=== PATIENT | male | born 1995 | race Hispanic/Latino ===

== ENCOUNTER 2017-08-09 19:37 | Emergency (ER) | payer SELFPAY ==
[~2017-08-09] VITALS: Ht 167.6 cm; Wt 70.0 kg
[2017-08-09 20:22] LABS: HEMATOCRIT 42.7 % (39.0-50.0); HEMOGLOBIN 14.9 g/dl (14.0-18.0); IMMATURE GRANULOCYTES 0.5 % (0.0-1.0); MEAN CELL VOLUME 87.5 fL CALC (80.0-100.0); MEAN CORPUSCULAR HGB 30.5 pG CALC (26.0-32.0); MEAN CORPUSCULAR HGB CONC 34.9 g/L CALC (32.0-36.0); NEUT# 7.46 thou/uL (1.82-7.42); RED BLOOD COUNT 4.88 mill/uL (4.70-6.10); RED CELL DISTRI WIDTH 12.3 % (11.5-15.5)
[2017-08-09 20:23] LABS: URINE BILIRUBIN - DIPSTICK NEGATIVE (NEGATIVE); URINE BLOOD DIPSTICK TRACE-INTACT (NEGATIVE); URINE CLARITY CLEAR; URINE COLOR YELLOW; URINE GLUCOSE - DIPSTICK 500 mg/dL (NEGATIVE); URINE KETONE NEGATIVE (NEGATIVE); URINE LEUK ESTERASE NEGATIVE (NEGATIVE); URINE NITRITE - DIPSTICK NEGATIVE (Negative); URINE PH 5.5 (4.5-8.0); URINE PROTEIN - DIPSTICK NEGATIVE (NEG-TRACE); URINE UROBILINOGEN - DIPSTICK 0.2 E.U./dL (0.2)
[2017-08-09 20:24] LABS: BARBITURATES NEGATIVE (NEGATIVE); COCAINE NEGATIVE (NEGATIVE); METHADONE NEGATIVE (NEGATIVE); OXCYCODONE NEGATIVE (NEGATIVE); TETRAHYDROCANNABIONOL NEGATIVE (NEGATIVE); TRICYLIC ANTIDEPRESSANTS NEGATIVE (NEGATIVE)
[2017-08-09 20:39] LABS: ALBUMIN 4.4 g/dL (3.2-5.0); ALKALINE PHOSPHATASE 115 u/l (38-126); ANION GAP 24 (6-22 (CALC)); BILIRUBIN, TOTAL 0.7 mg/dL (0.0-1.4); BUN 12 mg/dL (9-20); BUN/CREATININE RATIO 11 (12-20 (CALC)); CALCIUM 8.5 mg/dL (8.4-10.2); CARBON DIOXIDE 20 mmol/l (22-30); CHLORIDE 101 mmol/l (95-108); CREATININE 1.1 mg/dL (0.7-1.3); GFR > 60 ML/MIN (>=60 (CALC)); GFR FOR AFR.AMER. > 60 ML/MIN (>=60 (CALC)); GLUCOSE 251 mg/dL (75-110); MAGNESIUM 2.4 mg/dL (1.6-2.3); POTASSIUM 4.4 mmol/l (3.5-5.1); SGOT/AST 38 u/l (17-59); SGPT/ALT 26 u/l (21-72); SODIUM 140 mmol/l (137-146); TOTAL PROTEIN 6.9 g/dL (6.3-8.2)
[2017-08-09 20:46] LABS: ETHYL ALCOHOL 0 mg/dl (0-30)
[2017-08-10 00:07] VITALS: BP 81/42
== END 2017-08-10 00:22 | disposition short-term general hospital (02) | DRG 189 ==
LOC: ED 19:37 → EDBD 19:53 → ED 08-10 00:22
PROVIDERS: Emergency Medicine
PROC: 0BH18EZ Insertion of Endotracheal Airway into Trachea, Via Natural or Artificial Opening Endoscopic (ICD-10-PCS; principal; 2017-08-09)
DX: J96.90 Respiratory failure, unspecified, unspecified whether with hypoxia or hypercapnia (principal); J45.902 Unspecified asthma with status asthmaticus; R00.0 Tachycardia, unspecified; R41.82 Altered mental status, unspecified; Y92.007 Garden or yard of unspecified non-institutional (private) residence as the place of occurrence of the external cause

== ENCOUNTER 2017-11-04 16:32 | Inpatient (IN) | payer SELFPAY ==
[2017-11-04] VITALS (7 sets, daily range): BP systolic 112–140; BP diastolic 59–83
[~2017-11-04] VITALS: Ht 167.6 cm; Wt 69.2 kg
--- NOTE | 2017-11-04 16:50 | NUR ---
PT ON STRETCHER, EVEN DURING NEB TREATMENTS, SATS REMAIN AT 84, NOTIFIED, BIPAP INITIATED. PT IS HAVING LABORED BREATHING.
--- NOTE | 2017-11-04 17:05 | NUR ---
SATS UP TO 100%N WITH BIPAP APPLIED.
--- NOTE | 2017-11-04 17:06 | NUR ---
MEDICATIONS ADMINISTERED PER MD ORDER. , PT IS BEGINGING TO CALM DOWN WITH ASSISTANCE FROM BIPAP, PT STATES FEELING "ALITTLE" BETTER.
[2017-11-04 17:16] LABS: HEMATOCRIT 46.2 % (39.0-50.0); HEMOGLOBIN 16.1 g/dl (14.0-18.0); IMMATURE GRANULOCYTES 0.2 % (0.0-1.0); MEAN CELL VOLUME 87.5 fL CALC (80.0-100.0); MEAN CORPUSCULAR HGB 30.5 pG CALC (26.0-32.0); MEAN CORPUSCULAR HGB CONC 34.8 g/L CALC (32.0-36.0); NEUT# 1.7 thou/uL (1.82-7.42); RED BLOOD COUNT 5.28 mill/uL (4.70-6.10); RED CELL DISTRI WIDTH 12.8 % (11.5-15.5)
[2017-11-04 17:23] LABS: ALBUMIN 4.6 g/dL (3.2-5.0); ALKALINE PHOSPHATASE 105 u/l (38-126); ANION GAP 20 (6-22 (CALC)); BILIRUBIN, TOTAL 0.3 mg/dL (0.0-1.4); BUN 15 mg/dL (9-20); BUN/CREATININE RATIO 18 (12-20 (CALC)); CARBON DIOXIDE 24 mmol/l (22-30); CHLORIDE 107 mmol/l (95-108); CREATININE 0.8 mg/dL (0.7-1.3); GFR > 60 ML/MIN (>=60 (CALC)); GFR FOR AFR.AMER. > 60 ML/MIN (>=60 (CALC)); POTASSIUM 3.6 mmol/l (3.5-5.1); SGOT/AST 28 u/l (17-59); SGPT/ALT 23 u/l (21-72); SODIUM 146 mmol/l (137-146); TOTAL PROTEIN 7.3 g/dL (6.3-8.2)
--- NOTE | 2017-11-04 17:34 | NUR ---
ABG PREFORMED AND AWARE OF RESULTS, PT CONTINUING TO SLOW DOWN RESPIRATORY RATE, IV PATENT,
[2017-11-04 17:35] LABS: INFLUENZA A NONE DETECTED (NONE DETECT); INFLUENZA B NONE DETECTED (NONE DETECT)
--- NOTE | 2017-11-04 18:02 | NUR ---
BIPAP- PRESSURE 15/5 DOWN FROM 01/05 35% FROM 40% INITALLY STARTED @100% RESP RATE 22 FROM 24 CURRENT SETTINGS FROM DIANA RT
--- NOTE | 2017-11-04 18:13 | NUR ---
PT CALLED STAFF TO ROOM, HE HAS A RASH ON LEGS AND TRUNK OF BODY WITH ITCHING. NOTIFIED AND WILL GIVE ORDERS.
--- NOTE | 2017-11-04 18:33 | NUR ---
REPORT CALLED TO ICU, REPORT GIVEN TO RAUL SHAH- ACCEPTED MANET.
--- NOTE | 2017-11-04 18:45 | NUR ---
RECEIVED FROM ER VIA STRETCHER ACCOMPANIED BY ER STAFF, AMBULATING TO STANDING SCALE THEN TO BED WITH STEADY GAIT. A/O X3. ON BIPAP /, 35%, RATE 22. REPIRATIONS 24, ADMITS TO FEELING MUCH BETTER THEN WHEN ARRIVED. TEMP 97.3, HR 102, B/P 140/83, O2 SAT 99%. LUNG SOUNDS CLEAR BILAT. RAISED AREAS NOTICED TO RIGHT SIDE OF ABDOMEN AND RIGHT LOWER EXTREMITY, DENIES HAVING PRIOR TO ARRIVAL. SALINE LOCKS #20 TO LAC AND RAC, FLUSHED WITH NO COMPLICATIONS. ORIENTED TO BED CONTROLS AND CALL LIGHT. WILL CONTINUE TO MONITOR.
--- NOTE | 2017-11-04 18:54 | NUR ---
PT TRANSPORTED TO ICU ON MONITOR WITH RN. RT TRANSPORTED BIPAP MACHINE. PT TRANSFERERED WITHOUT INCIDENT.
[2017-11-04 20:33] LABS: URINE BILIRUBIN - DIPSTICK NEGATIVE (NEGATIVE); URINE BLOOD DIPSTICK TRACE-INTACT (NEGATIVE); URINE COLOR YELLOW; URINE GLUCOSE - DIPSTICK NEGATIVE (NEGATIVE); URINE KETONE NEGATIVE (NEGATIVE); URINE LEUK ESTERASE NEGATIVE (NEGATIVE); URINE NITRITE - DIPSTICK NEGATIVE (Negative); URINE PROTEIN - DIPSTICK NEGATIVE (NEG-TRACE); URINE SPECIFIC GRAVITY 1.025; URINE UROBILINOGEN - DIPSTICK 0.2 E.U./dL (0.2)
--- NOTE | 2017-11-04 20:37 | NUR ---
BIPAP REMOVED BY RESPIRATORY THERAPY, O2 @2L VIA NC APPLIED AT 2036. O2 SAT MAINTAINING AT 97-98%. PT ON CELL PHONE, TALKING WITH NO SOB. IV FLUIDS NS SPIKE AND INFUSING TO RAC AT 100CC/HR. CALL LIGHT IN REACH. ABG REPEATED BY JUNIOR THORNTON AT THIS TIME 2129, TOLERATED WELL.
[2017-11-04 20:38] LABS: URINE CLARITY CLEAR
--- NOTE | 2017-11-04 23:15 | NUR ---
OOB TO BATHROOM WITH STEADY GAIT, RESPIRATIONS EVEN AND UNLABORED ON O2 @2L VIA NC. ADMITS TO HAVING SOFT, FORMED, BROWN BM. THEN BACK TO BED, DENIES SOB. TOLERATING PO FLUIDS.
[2017-11-05] VITALS (11 sets, daily range): BP systolic 103–137; BP diastolic 50–69
--- NOTE | 2017-11-05 02:30 | NUR ---
OOB TO BATHROOM WITH STEADY GAIT O2 @2L VIA NC, O2 SAT 98%, RESPIRATIONS EVEN AND UNLABORED, VOIDING CLEAR YELLOW URINE AND MODERATE, BROWN, FORMED BM. BACK TO BED. CALL LIGHT IN REACH. IV FLUIDS INFUSING TO RAC AT 100CC/HR.
--- NOTE | 2017-11-05 04:47 | NUR ---
MORNING BLOOD WORK DRAWN BY DIRECTOR SUMMER SESSIONS, TOLERATED WELL. RESPIRATIONS EVEN AND UNLABORED ON O2@2L VIA NC. IV FLUIDS INFUSING TO RAC WITH NO COMPLICATIONS. CALL LIGHT IN REACH.
[2017-11-05 05:29] LABS: HEMATOCRIT 41.7 % (39.0-50.0); HEMOGLOBIN 14.7 g/dl (14.0-18.0); IMMATURE GRANULOCYTES 0.4 % (0.0-1.0); MEAN CELL VOLUME 86.3 fL CALC (80.0-100.0); MEAN CORPUSCULAR HGB 30.4 pG CALC (26.0-32.0); MEAN CORPUSCULAR HGB CONC 35.3 g/L CALC (32.0-36.0); NEUT# 7.28 thou/uL (1.82-7.42); RED BLOOD COUNT 4.83 mill/uL (4.70-6.10); RED CELL DISTRI WIDTH 12.6 % (11.5-15.5)
[2017-11-05 05:43] LABS: ANION GAP 19 (6-22 (CALC)); BUN 17 mg/dL (9-20); BUN/CREATININE RATIO 16 (12-20 (CALC)); CARBON DIOXIDE 21 mmol/l (22-30); CHLORIDE 107 mmol/l (95-108); GFR > 60 ML/MIN (>=60 (CALC)); GFR FOR AFR.AMER. > 60 ML/MIN (>=60 (CALC)); POTASSIUM 4.8 mmol/l (3.5-5.1); SODIUM 142 mmol/l (137-146)
--- NOTE | 2017-11-05 06:29 | NUR ---
RASH TO RIGHT SIDE OF ABDOMEN AND RIGHT LOWER EXTREMITY HAS RESOLVED.
--- NOTE | 2017-11-05 07:30 | NUR ---
PT RESTING IN BED, ALERT AND ORIENTED, SPEAKS [place] ONLY BUT ABLE TO MAKE NEEDS KNOWN, AM ASSESSMENT COMPLETED VERY FAINT WHEEZES HEARD BUT NO SHORTNESS OF BREATH OR DISTRESS NOTED, O2 STOPPED (PT DOES NOT WEAR O2 AT HOME) AND WILL MONITOR PULS OX CLOSELY, ABD SOFT, BS ACTIVE BM X2 LAST PM PER REPORT, DENIES PAIN OR DISCOMFORT, AM ASSESSMENT COMPLETED SEE INTERVENTION. TELE READING SR ST RATE 90-110, BP STABLE PT AFEBRILE, CALL FORRESTER WITHIN REACH, WILL CONTINUE TO MONITOR.
--- NOTE | 2017-11-05 07:45 | NUR ---
MONITORING EQUIPMENT PAUSED AND PT AMBULATED TO BATHROOM WITH STRONG STEADY GAIT, CONTINENT OF BOWEL AND BLADDER, OFFERS NO COMPLAINTS, AMBULATED BACK TO BED AND ALL MONITORING EQUIPMETN REPAPLIED, CALL FORRESTER WITHIN REACH, WILL CONTINUE TO MONITOR.
--- NOTE | 2017-11-05 09:15 | NUR ---
IN TO SEE PATIENT, PLAN OF CARE DISCSSUED INCDULING D/C HOME LATER TODAY AND POST HOSPITAL CARE. ALL DOEN WITH ISAI ZAIDI TRANSLATING, PT HAD VISITOR AT BEDSIDE, CALL FORRESTER WITHIN REACH
--- NOTE | 2017-11-05 10:24 | NUR ---
PT TOLERATED AM MEAL WELL, IVF STOPPED EARLIER PER VERBAL ORDER PT AMBULATED TO [facility] GA[facility] WITH STEADY GAIT, O2 HAS BEEN OFF SINCE 0715AM WITH SATS MAINTAINED 94-96% WITH NO SOB OR DISTRESS NTOED, WILL CONTINUE TO MONITOR.
--- NOTE | 2017-11-05 10:36 | NUR ---
P[T BACK TO BED, ALL MONITORING EQUIPMENT REAPPLIED, SATS 92% AFTER ACTIVITY, NO SOB OR DISTRESS NOTED, CALL FORRESTER WITHIN REACH
--- NOTE | 2017-11-05 11:35 | NUR ---
PT REQUESTING NB TREATMENT R.T. NOTIFIED
--- NOTE | 2017-11-05 11:45 | NUR ---
SET UP ASSIST PROVIDED FOR AFTERNOON MEAL, APPETITE GOOD, TOLERATING DIET WELL.
--- NOTE | 2017-11-05 12:20 | NUR ---
PT AMBULATED TO BATHROOM, WITH STRONG STEADY GAIT, TOLERATES ACTIVITY WELL, BACK FROM BATHROOM WITH SAME STEADY GAIT, CALL FORRESTER WITHIN REACH
--- NOTE | 2017-11-05 13:18 | NUR ---
BACK TO SEE PATIENT, PLAN TO DISCHARGE TOMORROW AM, PT VERBALIZES UNDERSTANDING, CALL FORRESTER WITHIN REACH
--- NOTE | 2017-11-05 15:21 | NUR ---
PT AMBULATED TO BATHROOM WITH STRONG STEADY GAIT, INSTRUCTED TO CALL FOR ANY NEEDED ASSISTANCE,
--- NOTE | 2017-11-05 18:00 | NUR ---
PT AMBULATES TO BATHROOM, TOLERATES ACTIVITY WELL, NO S/S OF DISTRESS NOTED AMBULATES BACK TO BED WITHOUT INCIDENT. CALL FORRESTER WITHIN REACH, SET UP ASSIST PROVIDED EARLIER FOR PM MEAL,
--- NOTE | 2017-11-05 19:30 | NUR ---
interprted per natalya, rt. awake. denies resp diff. monitoring tech shows sinus rhythm. #22 rfa saline lock. po fluids taken well. voids per bathroom. fall precautions cont.
--- NOTE | 2017-11-05 22:00 | NUR ---
amb self to br. ryan well. no resp distress.
[2017-11-06] VITALS (7 sets, daily range): BP systolic 101–135; BP diastolic 52–71
--- NOTE | 2017-11-06 00:01 | NUR ---
eyes closed. no distress. radiographer cardiac catheterization shows sinus rhythm.
--- NOTE | 2017-11-06 02:00 | NUR ---
resting quietly. resps even & unlabored. no apparent distress.
--- NOTE | 2017-11-06 04:00 | NUR ---
amb self to br. ryan well.
--- NOTE | 2017-11-06 06:00 | NUR ---
no acute change in condition this shift. hospital monitor shows sinus rhythm.
--- NOTE | 2017-11-06 07:30 | NUR ---
PT RESTING IN BED, ALERT AND ORIENTED, SPEAKS [place] ONLY BUT ABLE TO MAKE NEEDS KNOWN, AM ASSESSMENT COMPLETED FAINT WHEEZES HEARD BUT NO SHORTNESS OF BREATH OR DISTRESS NOTED, ROOM AIR SATS 95-98% WILL CONTINUE TO MONITOR PULSE OX CLOSELY, ABD SOFT, BS ACTIVE, DENIES PAIN OR DISCOMFORT, AM ASSESSMENT COMPLETED SEE INTERVENTION. TELE READING SR ST RATE 80-100, BP STABLE PT AFEBRILE, CALL FORRESTER WITHIN REACH, WILL CONTINUE TO MONITOR.
--- NOTE | 2017-11-06 08:15 | NUR ---
PT TOLERATED AM MEAL WELL, DENIES N/V CALL FORRESTER WITHIN REACH, WILL CONTINUE TO MONITOR
[2017-11-06] MEDS ORDERED: PREDNISONE10 MG PO (09:22)
--- NOTE | 2017-11-06 09:36 | NUR ---
PT INSTRUCTED ON CORRECT INHALER USAGE, PROVIDED WITH SAMPLE DULERA INHALER FROM OFFICE. PT DEMONSTRATED CORRECT USAGE, DISCUSSED D/C INSTRUCTIONS WITH PATIENT, INCLUDING TAKING ALLERGY MEDICATION, USING INHALER AND TAKING PREDISONE INSTRUCTED, ALL QUESTIONS ANSWERED.
[2017-11-06] MEDS ORDERED: SINGULAIR10 MG PO (09:37)
--- NOTE | 2017-11-06 10:44 | NUR ---
PT RESTING IN BED, OFFERS NO NEW COMPLAINTS, CALL FORRESTER WITHIN REACH
--- NOTE | 2017-11-06 13:00 | NUR ---
D/C INSTRUCTIONS AND POST HOSPITAL CARE DONE WITH ALICE ACTING GREASER HELPER, ALL QUESTIONS ANSWERED AND PT VERBALIZES UNDERSTANDING, ALL MONITORING EQUIPMET REMOVED AND PT CALLING HIS "FRIEND" TO COME AND PICK HIM UP. 2 SAMPLE DULERA IUNHALERS PROVIDED TO PT COURTESY OF DR. BRADSHAW, PT ALSO PROVIDED WITH 2 SCRIPTS ONE FOR SINGULAIR AND ONE FOR PREDNISONE, INSTRUCTED REGARDING THE IMPORTANCE OF TAKING MEDICATIONS PRESCRIBED AND FOLLOWING UP AT THE HEALTH DEPT, EDUCATED TO RETURN TO HOSPITAL FOR ANY PROBLEMS, CALL FORRESTER WITHIN REACH.
--- NOTE | 2017-11-06 13:25 | NUR ---
Discharge instructions given. Patient verbalizes understanding of same. Discharged in stable condition via Wheelchair to Home with friend. All belongings sent with pt.
== END 2017-11-06 13:25 | disposition home or self-care (01) | DRG 189 ==
LOC: EDBD 16:32 → ED 16:32 → ED-I 17:03 → ED 18:35 → ICU 18:36
PROVIDERS: Emergency Medicine; Nurse Practitioner Family; ADMIT Internal Medicine; ATTEND Internal Medicine
PROC: 5A09357 Assistance with Respiratory Ventilation, Less than 24 Consecutive Hours, Continuous Positive Airway Pressure (ICD-10-PCS; principal; 2017-11-04)
DX: J96.01 Acute respiratory failure with hypoxia (principal); J45.901 Unspecified asthma with (acute) exacerbation